=== PATIENT | female | born 1985 | race African-American/Black ===

== ENCOUNTER 2018-12-30 15:09 | Inpatient (IN) | payer BC ==
[~2018-12-30] VITALS: Ht 172.7 cm; Wt 122.5 kg
--- NOTE | 2018-12-30 15:25 | NUR ---
ED Nurse Note: Patient walked into Ed from home c/o abdominal pain. Patient reports nausea, vomiting, diarrhea.
[2018-12-30] MEDS ORDERED: Morphine Sulfate 4mg/ml Inj (IV USE ONLY) IVP ONE (15:30)
[2018-12-30] MEDS ORDERED: D5NS 1,000 ML IV ONE (15:30)
[2018-12-30] MEDS: Metoclopramide 10mg/2ml Inj IVP ONE ×2 (15:50→18:22)
[2018-12-30] MEDS ORDERED: Isovue-300 100ml vial INJ PRN (16:00)
[2018-12-30 16:13] LABS: APPEARANCE,URINE CLEAR; BILIRUBIN, URINE NEGATIVE (NEGATIVE); COLOR,URINE PALE YELLOW; GLUCOSE, URINE (UA) NEGATIVE (NEGATIVE); HEMATOCRIT 43.2 % (37.0-47.0); HEMOGLOBIN 13.9 G/DL (12.0-16.0); KETONES,URINE NEGATIVE (NEGATIVE); LEUKOCYTE ESTERASE ,URINE NEGATIVE (NEGATIVE); MEAN CORPUSCULAR VOLUME 86 FL (80-99); NITRITE,URINE NEGATIVE (NEGATIVE); PH,URINE 6 (4.5-8.0); PLATELET COUNT 331 K/UL (150-450); PROTEIN,URINE 2+ (NEGATIVE); RED BLOOD COUNT 5.03 M/UL (4.20-5.40); RED CELL DISTRIBUTION WIDTH 12.7 % (11.6-14.8); UROBILINOGEN,URINE NORMAL MG/DL (0.0-1.0); WHITE BLOOD COUNT 15.2 K/UL (4.8-10.8)
[2018-12-30 16:14] VITALS: BP 151/94
[2018-12-30 16:16] LABS: BASOPHILS % (AUTO) 0.2 % (0.0-2.0); EOSINOPHILS % (AUTO) 1.2 % (0.0-3.0); LYMPHOCYTES % (AUTO) 6.8 % (20.0-45.0); MONOCYTES % (AUTO) 2.9 % (1.0-10.0); NEUTROPHILS % (AUTO) 88.9 % (45.0-75.0)
[2018-12-30 16:25] LABS: ANION GAP 10 mmol/L (5-15); BLOOD UREA NITROGEN 5 mg/dL (7-18); CALCIUM 9.2 MG/DL (8.5-10.1); CARBON DIOXIDE 26 MMOL/L (21-32); CHLORIDE 103 MMOL/L (98-107); CREATININE 1.2 MG/DL (0.55-1.30); POTASSIUM 3.5 MMOL/L (3.5-5.1); SODIUM 139 MMOL/L (136-145)
[2018-12-30 16:29] LABS: ALANINE AMINOTRANSFERASE 25 U/L (12-78); ALBUMIN 3.4 G/DL (3.4-5.0); ALBUMIN/GLOBULIN RATIO 0.8 (1.0-2.7); ALKALINE PHOSPHATASE 79 U/L (46-116); ASPARTATE AMINO TRANSFERASE 17 U/L (15-37); BILIRUBIN,TOTAL 0.6 MG/DL (0.2-1.0)
--- NOTE | 2018-12-30 16:47 | NUR ---
ED Nurse Note: patient started drinking the contrast, per Michi velazco, patient will go down for CT at 1815
[2018-12-30] MEDS ORDERED: JUNEL FE 1 MG-1 EACH PO (17:22)
[2018-12-30] MEDS ORDERED: ADALAT10 MG ORAL (18:03)
[2018-12-30] MEDS ORDERED: QUETIAPINE FUM400 MG ORAL (18:03)
[2018-12-30] MEDS ORDERED: LITHIUM CARBON300 MG ORAL (18:03)
[2018-12-30] MEDS ORDERED: LOSARTAN POTASS25 MG ORAL (18:03)
--- NOTE | 2018-12-30 18:05 | NUR ---
ED Nurse Note: patient went down for CT
--- NOTE | 2018-12-30 18:19 | NUR ---
ED Nurse Note: patient came back from CT
[2018-12-30] MEDS ORDERED: Metoclopramide 10mg/2ml Inj ONE (18:22)
--- NOTE | 2018-12-30 18:30 | NUR ---
ED Nurse Note: Dr. Mosqueda gave verbal order at 1530 to hold onto the Reglan. RN returned reglan to [facility]. Reglan was not given to the patient at 1530. Reglan was given at 1822, patient vomited once.
--- NOTE | 2018-12-30 18:57 | NUR ---
ED Nurse Note: patient is being transferred to [facility], report given to Swati RN patient went up to the floor with Sriram Murphy
--- NOTE | 2018-12-30 19:01 | Consultation ---
History of Present Illness General Date patient seen: Dec 30, 2018 Reason for Hospitalization: Abdominal Pain Present Illness HPI 33 year old female with history of HTN and fibroids s/p ablation presented to ED with complaints of worsening abdominal pain, nausea, emesis, dysphagia. States that she has had abdominal generalized discomfort for 2 weeks now. over past few days worsening and described as cramping discomfort without radiation. Associated nausea and began to have persistent multiple emesis last night. Came to ED for evaluation today. In ED noted to have abdominal distention and leukocytosis. describes difficulty swallowing. CT scans ordered. Surgery called to evaluate. patient seen, chart reviewed, patient examined. Patient OB Dr. Darshan Johnson. Allergies: Coded Allergies: No Known Allergies (Unverified , 12/30/18) Medication History Scheduled Elliott Carbonate* (Elliott*), 600 MG ORAL QAM AND 900MG QHS, (Reported) Losartan Potassium* (Losartan Potassium*), Unknown Dose ORAL DAILY, (Reported) Nifedipine (Nifedipine*), Unknown Dose ORAL DAILY, (Reported) Noreth A-Et Estra/Fe Fumarate (Junel Fe 1 Mg-20 Mcg Tablet), 1 EACH PO DAILY, ( Reported) Quetiapine Fumarate* (Quetiapine Fumarate*), 400 MG ORAL HS, (Reported) Patient History History Provided By: Patient, Medical Record, PMD Healthcare decision maker Resuscitation status Advanced Directive on File Past Medical/Surgical History Past Medical/Surgical History: (1) Abdominal pain (2) Nausea & vomiting (3) Leukocytosis Review of Systems Review of Symptoms General ROS: no weight loss or fever Psychological ROS: no depression or mood changes, no memory loss Ophthalmic ROS: no visual changes or eye irritation ENT ROS: no nasal congestion, hearing loss, dizziness Allergy and Immunology ROS: no allergic symptoms or urticaria Hematological and Lymphatic ROS: no swollen glands, unusual bleeding or bruising Endocrine ROS: no polyuria, polydipsia, weight changes, temperature intolerance Respiratory ROS: no cough, shortness of breath, or wheezing Cardiovascular ROS: no chest pain or dyspnea on exertion Gastrointestinal ROS: denies abdominal pain, bright red blood in stool. Musculoskeletal ROS: no myalgias or arthralgias Neurological ROS: no TIA or stroke symptoms Dermatological ROS: no new or changing skin lesions, rashes or pruritis Physical Exam Physical Exam General appearance: alert, cooperative, no distress, appears stated age Head: Normocephalic, without obvious abnormality, atraumatic Eyes: conjunctivae/corneas clear. PERRL, EOM's intact. Fundi benign Throat: Lips, mucosa, and tongue normal. Teeth and gums normal Neck: supple, symmetrical, trachea midline, no adenopathy, thyroid: not enlarged, symmetric, no tenderness/mass/nodules, no carotid bruit and no JVD Lungs: clear to auscultation bilaterally Heart: regular rate and rhythm, S1, S2 normal, no murmur, click, rub or gallop Abdomen: soft, mild generalized tender. Bowel sounds normal. large uterus Extremities: extremities normal, atraumatic, no cyanosis or edema Pulses: 2+ and symmetric Skin: Skin color, texture, turgor normal. No rashes or lesions Neurologic: Grossly normal Last 24 Hour Vital Signs Date Time Temp Pulse Resp B/P (MAP) Pulse Ox O2 Delivery O2 Flow Rate FiO2 12/30/18 16:20 98.2 12/30/18 16:15 103 19 Room Air 12/30/18 16:14 98.2 103 19 151/94 98 Room Air 12/30/18 15:17 98.2 116 20 162/118 97 Room Air Laboratory Tests Test 12/30/18 15:45 White Blood Count 15.2 K/UL (4.8-10.8) H Red Blood Count 5.03 M/UL (4.20-5.40) Hemoglobin 13.9 G/DL (12.0-16.0) Hematocrit 43.2 % (37.0-47.0) Mean Corpuscular Volume 86 FL (80-99) Mean Corpuscular Hemoglobin 27.7 PG (27.0-31.0) Mean Corpuscular Hemoglobin Concent 32.2 G/DL (32.0-36.0) Red Cell Distribution Width 12.7 % (11.6-14.8) Platelet Count 331 K/UL (150-450) Mean Platelet Volume 6.2 FL (6.5-10.1) L Neutrophils (%) (Auto) 88.9 % (45.0-75.0) H Lymphocytes (%) (Auto) 6.8 % (20.0-45.0) L Monocytes (%) (Auto) 2.9 % (1.0-10.0) Eosinophils (%) (Auto) 1.2 % (0.0-3.0) Basophils (%) (Auto) 0.2 % (0.0-2.0) Urine Color Pale yellow Urine Appearance Clear Urine pH 6 (4.5-8.0) Urine Specific [place] 1.010 (1.005-1.035) Urine Protein 2+ (NEGATIVE) H Urine Glucose (UA) Negative (NEGATIVE) Urine Ketones Negative (NEGATIVE) Urine Blood Negative (NEGATIVE) Urine Nitrite Negative (NEGATIVE) Urine Bilirubin Negative (NEGATIVE) Urine Urobilinogen Normal MG/DL (0.0-1.0) Urine Leukocyte Esterase Negative (NEGATIVE) Urine RBC 0-2 /HPF (0 - 2) Urine WBC 0-2 /HPF (0 - 2) Urine Squamous Epithelial Cells Moderate /LPF (NONE/OCC) H Urine Bacteria Few /HPF (NONE) Urine HCG, Qualitative Negative (NEGATIVE) Sodium Level 139 MMOL/L (136-145) Potassium Level 3.5 MMOL/L (3.5-5.1) Chloride Level 103 MMOL/L (98-107) Carbon Dioxide Level 26 MMOL/L (21-32) Anion Gap 10 mmol/L (5-15) Blood Urea Nitrogen 5 mg/dL (7-18) L Creatinine 1.2 MG/DL (0.55-1.30) Estimat Glomerular Filtration Rate 52.1 mL/min (>60) Glucose Level 124 MG/DL (74-106) H Calcium Level 9.2 MG/DL (8.5-10.1) Total Bilirubin 0.6 MG/DL (0.2-1.0) Aspartate Amino Transf (AST/SGOT) 17 U/L (15-37) Alanine Aminotransferase (ALT/SGPT) 25 U/L (12-78) Alkaline Phosphatase 79 U/L (46-116) Total Protein 7.8 G/DL (6.4-8.2) Albumin 3.4 G/DL (3.4-5.0) Globulin 4.4 g/dL Albumin/Globulin Ratio 0.8 (1.0-2.7) L Lipase 62 U/L (73-393) L Height (Feet): 5 Height (Inches): 8.00 Weight (Pounds): 270 Medications Current Medications Medications (Trade) Dose Ordered Sig/Manjula Route PRN Reason Start Time Stop Time Status Last Admin Dose Admin Barium Sulfate (Readi-Cat 2) 450 ml NOW PRN ORAL Radiology Procedure 12/30/18 16:00 01/01/19 15:53 Iopamidol (Isovue-300 100ml) 100 ml NOW PRN INJ Radiology Procedure 12/30/18 16:00 Assessment/Plan Problem List: (1) Abdominal pain Assessment & Plan: Generalized abdominal pain. n/v. leukocytosis etiology unclear pending CT scan reads ?enteritis ?bowel obstruction (hx of prior lap fibroid ablation) Admit for monitoring. intractable abd pain, n/v NPO IV fluids IV Abx GI for EGD eval pending final CT reads No acute surgical intervention planned will follow with serial abdominal exams ICD Codes: R10.9 - Unspecified abdominal pain SNOMED: 82420568 Qualifiers: Qualified Codes: R10.84 - Generalized abdominal pain (2) Leukocytosis ICD Codes: D72.829 - Elevated white blood cell count, unspecified SNOMED: 869635929, [id number] (3) Nausea & vomiting ICD Codes: R11.2 - Nausea with vomiting, unspecified SNOMED: [id number] Gideon Petit Dec 30, 2018 19:01
[2018-12-30] MEDS ORDERED: LITHIUM CARBON450 MG PO (19:15)
[2018-12-30] MEDS ORDERED: TRAMADOL HCL50 MG ORAL (19:15)
[2018-12-30] MEDS ORDERED: LITHIUM CARBON300 M3 PO (19:15)
[2018-12-30] MEDS ORDERED: SPIRONOLACTONE25 MG ORAL (19:15)
--- NOTE | 2018-12-30 19:15 | Emergency Room Report ---
History of Present Illness General Chief Complaint: Abdominal Pain Source: Patient, Medical Record, PMD Present Illness HPI This patient states that for the past 2 weeks she has had intermittent episodes of severe abdominal pain and recurrent vomiting. She states that she was seen at another hospital and underwent CT of the abdomen and pelvis and ultrasound and she was only found to have her known fibroids. She has a history of severe fibroids and endometriosis. She states she has undergone fibroid embolization twice. The most recent being about 9 months ago. She is scheduled for another embolization coming up this spring. She states that for the past week she has had dysphasia symptoms. She states she feels like she cannot swallow food. She states that she immediately vomits. She denies fever or chills. She denies dysuria or hematuria. She is also had left upper quadrant abdominal pain. Allergies: Coded Allergies: No Known Allergies (Unverified , 12/30/18) Patient History Past Medical History: see triage record, HTN, other - Fibroids Social History: Denies: smoking, alcohol use, drug use Last Menstrual Period: 12/2018 Now: No Reviewed Nursing Documentation: PMH: Agreed; PSxH: Agreed Nursing Documentation-PMH Past Medical History: No History, Except For Hx Hypertension: Yes Review of Systems All Other Systems: negative except mentioned in HPI Physical Exam Vital Signs Date Time Temp Pulse Resp B/P (MAP) Pulse Ox O2 Delivery O2 Flow Rate FiO2 12/30/18 15:17 98.2 116 20 162/118 97 Room Air Sp02 EP Interpretation: reviewed, normal General Appearance: no apparent distress, alert, GCS 15, non-toxic Head: normocephalic, atraumatic Eyes: bilateral eye normal inspection, bilateral eye PERRL ENT: hearing grossly normal, normal pharynx, no angioedema, normal voice Neck: full range of motion, supple/symm/no masses Respiratory: chest non-tender, lungs clear, normal breath sounds, no respiratory distress, no retraction, no accessory muscle use, speaking full sentences Cardiovascular #1: regular rate, rhythm, no edema Gastrointestinal: normal bowel sounds, soft, non-distended, no guarding, no rebound, tenderness - TTP in the LUQ Rectal: deferred Musculoskeletal: back normal, gait/station normal, normal range of motion, non- tender Neurologic: alert, oriented x3, responsive, motor strength/tone normal, sensory intact, speech normal Psychiatric: judgement/insight normal, memory normal, mood/affect normal, no suicidal/homicidal ideation Skin: normal color, no rash, warm/dry, well hydrated Medical Decision Making Diagnostic Impression: Primary Impression: Abdominal pain Qualified Codes: R10.84 - Generalized abdominal pain Additional Impression: Dysphagia ER Course This patient is having intractable vomiting and symptoms as dysphagia. Possibly this patient has an esophagitis or gastritis or peptic ulcer disease is a possibility. The patient underwent CT of the neck and there is no acute findings. The patient also underwent CT abdomen and pelvis also showed no acute findings. The patient has known fibroids. Patient will be admitted for further evaluation by gastroenterology for EGD and for intractable vomiting. Laboratory Tests Test 12/30/18 15:45 White Blood Count 15.2 K/UL (4.8-10.8) H Red Blood Count 5.03 M/UL (4.20-5.40) Hemoglobin 13.9 G/DL (12.0-16.0) Hematocrit 43.2 % (37.0-47.0) Mean Corpuscular Volume 86 FL (80-99) Mean Corpuscular Hemoglobin 27.7 PG (27.0-31.0) Mean Corpuscular Hemoglobin Concent 32.2 G/DL (32.0-36.0) Red Cell Distribution Width 12.7 % (11.6-14.8) Platelet Count 331 K/UL (150-450) Mean Platelet Volume 6.2 FL (6.5-10.1) L Neutrophils (%) (Auto) 88.9 % (45.0-75.0) H Lymphocytes (%) (Auto) 6.8 % (20.0-45.0) L Monocytes (%) (Auto) 2.9 % (1.0-10.0) Eosinophils (%) (Auto) 1.2 % (0.0-3.0) Basophils (%) (Auto) 0.2 % (0.0-2.0) Urine Color Pale yellow Urine Appearance Clear Urine pH 6 (4.5-8.0) Urine Specific [place] 1.010 (1.005-1.035) Urine Protein 2+ (NEGATIVE) H Urine Glucose (UA) Negative (NEGATIVE) Urine Ketones Negative (NEGATIVE) Urine Blood Negative (NEGATIVE) Urine Nitrite Negative (NEGATIVE) Urine Bilirubin Negative (NEGATIVE) Urine Urobilinogen Normal MG/DL (0.0-1.0) Urine Leukocyte Esterase Negative (NEGATIVE) Urine RBC 0-2 /HPF (0 - 2) Urine WBC 0-2 /HPF (0 - 2) Urine Squamous Epithelial Cells Moderate /LPF (NONE/OCC) H Urine Bacteria Few /HPF (NONE) Urine HCG, Qualitative Negative (NEGATIVE) Sodium Level 139 MMOL/L (136-145) Potassium Level 3.5 MMOL/L (3.5-5.1) Chloride Level 103 MMOL/L (98-107) Carbon Dioxide Level 26 MMOL/L (21-32) Anion Gap 10 mmol/L (5-15) Blood Urea Nitrogen 5 mg/dL (7-18) L Creatinine 1.2 MG/DL (0.55-1.30) Estimate Glomerular Filtration Rate 52.1 mL/min (>60) Glucose Level 124 MG/DL (74-106) H Calcium Level 9.2 MG/DL (8.5-10.1) Total Bilirubin 0.6 MG/DL (0.2-1.0) Aspartate Amino Transferase (AST) 17 U/L (15-37) Alanine Aminotransferase (ALT) 25 U/L (12-78) Alkaline Phosphatase 79 U/L (46-116) Total Protein 7.8 G/DL (6.4-8.2) Albumin 3.4 G/DL (3.4-5.0) Globulin 4.4 g/dL Albumin/Globulin Ratio 0.8 (1.0-2.7) L Lipase 62 U/L (73-393) L CT/MRI/US Diagnostic Results CT/MRI/US Diagnostic Results : Imaging Test Ordered: CT neck, CT abd/pelvix Impression CT neck: No acute findings. CT abdomen and pelvis: Hepatomegaly, prominence of the colonic colon. See official report. Last Vital Signs Date Time Temp Pulse Resp B/P (MAP) Pulse Ox O2 Delivery O2 Flow Rate FiO2 12/30/18 16:20 98.2 12/30/18 16:15 103 19 Room Air 12/30/18 16:14 151/94 98 Status: improved Disposition: ADMITTED INPATIENT Condition: Stable Referrals: NON PHYSICIAN (PCP) Sharon Mackey DO Dec 30, 2018 19:15
[2018-12-30] MEDS ORDERED: NIFEDIPINE20 MG ORAL (19:17)
[2018-12-30] MEDS ORDERED: LOSARTAN POTASS50 MG ORAL (19:17)
[2018-12-30 20:00] VITALS: BP 181/121
[2018-12-30] MEDS: Heparin 5000 units/ml inj SUBQ SCH (20:39)
[2018-12-30] MEDS: Docusate 100mg cap ORAL SCH (20:40)
--- NOTE | 2018-12-30 21:11 | NUR ---
NEW ADMISSION: Recvd pt. Pt arrived via hospital bed at 1900. Admitting dx: dysphagia/ intractable pain. Admitting Dr. Naylor. Pt is on room air with no sign of sob or resp distress. PT is AOx4. Full physical assessment completed. Pt has expiratory wheezing with weak cough. Pt reports green diarrhea and nausea, pain 8/10 on left lower abdominal quadrant. Left AC 20g running 1/2NS @ 75/hr. Med Rec completed. Skin is intact. Belongings reviewed. Pt was oriented to room. Bed in lowest position, call light within reach, will continue with plan of care. Partial orders have been entered, will contact Dr Naylor for pain med.
--- NOTE | 2018-12-30 21:58 | NUR ---
NURSE NOTES: left message for dr samuels for bp meds, pt bp is elevated, pt is also in 8/10 pain
[2018-12-30] MEDS: Hydromorphone 0.5mg/0.5ml inj IVP PRN (22:43)
[2018-12-31] VITALS (11 sets, daily range): BP systolic 142–168; BP diastolic 95–119
[2018-12-31] MEDS: Hydromorphone 0.5mg/0.5ml inj IVP PRN ×3 (04:35→21:32)
[2018-12-31 06:28] LABS: BASOPHILS % (AUTO) 0.5 % (0.0-2.0); EOSINOPHILS % (AUTO) 2.5 % (0.0-3.0); HEMATOCRIT 37.9 % (37.0-47.0); LYMPHOCYTES % (AUTO) 14.9 % (20.0-45.0); MEAN CORPUSCULAR VOLUME 88 FL (80-99); MONOCYTES % (AUTO) 6.6 % (1.0-10.0); NEUTROPHILS % (AUTO) 75.5 % (45.0-75.0); PLATELET COUNT 274 K/UL (150-450); RED CELL DISTRIBUTION WIDTH 12.9 % (11.6-14.8); WHITE BLOOD COUNT 8.3 K/UL (4.8-10.8)
[2018-12-31 07:08] LABS: ANION GAP 9 mmol/L (5-15); BLOOD UREA NITROGEN 3 mg/dL (7-18); CALCIUM 8.5 MG/DL (8.5-10.1); CARBON DIOXIDE 26 MMOL/L (21-32); CHLORIDE 108 MMOL/L (98-107); POTASSIUM 3.4 MMOL/L (3.5-5.1); SODIUM 143 MMOL/L (136-145)
--- NOTE | 2018-12-31 07:18 | NUR ---
HAND-OFF: Report given to Reagan PINEDA.
--- NOTE | 2018-12-31 07:58 | NUR ---
CASE MANAGEMENT:REVIEW 33 YR OLD FEMALE FROM HOME CC; ABDOMINAL PAIN WITH N/V/D SI:ABDOMINAL PAIN. NAUSEA/VOMITING. LEUKOCYTOSIS 98.3 116 20 162/118 97% ON RA WBC+15.2 IS: IV REGLAN IV MORPHINE IVF X1L CT ABD/PELVIS AND NECK PELVIC US : TO MED/SURG 3 EAST PLAN: SURGICAL EVAL INTERQUAL CRITERIA MET
--- NOTE | 2018-12-31 08:18 | History and Physical ---
History of Present Illness General Date patient seen: Dec 31, 2018 Time patient seen: 07:00 Reason for Hospitalization: Abdominal Pain Present Illness HPI 33 year old woman with HTN and fibroids s/p ablation presented to ED with complaints of worsening LUQ abdominal pain, nausea, emesis, dysphagia. Abdominal pain is severe in intensity, nonradiating, crampy. Yesterday she developed nausea and vomiting, unable to keep down anything by mouth. Pain improved with IV Dilaudid given overnight. No further vomiting but has not had anything by mouth. Denies fever, chills, diarrhea, sick contacts. PMHx: HTN Social Hx: No recent alcohol, no tobacco or drugs Allergies: Coded Allergies: No Known Allergies (Unverified , 12/30/18) Medication History Scheduled Anthoston Carbonate (Anthoston Carbonate), 600 MG PO AM, (Reported) Anthoston Carbonate (Anthoston Carbonate), 900 MG PO HS, (Reported) Losartan Potassium* (Losartan Potassium*), 100 MG ORAL DAILY, (Reported) Nifedipine* (Nifedipine*), 20 MG ORAL EVERY 12 HOURS, (Reported) Noreth A-Et Estra/Fe Fumarate (Junel Fe 1 Mg-20 Mcg Tablet), 1 EACH PO DAILY, ( Reported) Quetiapine Fumarate* (Quetiapine Fumarate*), 400 MG ORAL HS, (Reported) Spironolactone* (Aldactone*), 25 MG ORAL DAILY, (Reported) Tramadol Hcl* (Ultram*), 50 MG ORAL PRN, (Reported) Discontinued Medications Losartan Potassium* (Losartan Potassium*), Unknown Dose ORAL DAILY, (Reported) Discontinued Reason: Prescription changed Nifedipine (Nifedipine*), Unknown Dose ORAL DAILY, (Reported) Discontinued Reason: Prescription changed Patient History Healthcare decision maker Resuscitation status Full Code Advanced Directive on File No Review of Systems Constitutional: Denies: chills, fever Eye: Denies: eye pain, blurred vision ENT: Denies: ear pain, ear discharge Respiratory: Denies: cough, orthopnea Cardiovascular: Denies: chest pain, edema Gastrointestinal: Reports: abdominal pain, nausea, vomiting; Denies: constipation, diarrhea Genitourinary: Denies: discharge Musculoskeletal: Denies: back pain Skin: Denies: rash Neurological: Denies: headache Physical Exam General Appearance: alert, obese HEENT: normocephalic, atraumatic Respiratory/Chest: lungs clear, normal breath sounds, no respiratory distress, no accessory muscle use Cardiovascular/Chest: normal rate, regular rhythm, regularly irregular Abdomen: normal bowel sounds, non tender, soft, no organomegaly, no mass Extremities: normal range of motion Skin Exam: normal pigmentation, warm/dry Neurologic: card brusher II-XII grossly normal, no motor/sensory deficits, alert, oriented x 3 Last 24 Hour Vital Signs Date Time Temp Pulse Resp B/P (MAP) Pulse Ox O2 Delivery O2 Flow Rate FiO2 12/31/18 07:59 98.4 92 19 153/118 (130) 97 12/31/18 05:05 99.2 12/31/18 04:00 99.2 96 18 157/100 (119) 95 12/31/18 00:00 97.4 109 18 155/107 (123) 95 12/30/18 21:05 Room Air 12/30/18 20:42 Room Air 12/30/18 20:00 99.2 105 20 181/121 (141) 95 12/30/18 19:26 98.2 103 19 151/94 98 Room Air 12/30/18 16:20 98.2 12/30/18 16:15 103 19 Room Air 12/30/18 16:14 98.2 103 19 151/94 98 Room Air 12/30/18 15:17 98.2 116 20 162/118 97 Room Air Intake and Output 12/30/18 12/31/18 19:00 07:00 Intake Total 1052 ml Balance 1052 ml Intake IV Total 1052 ml # Voids 4 # Bowel Movements 2 Laboratory Tests Test 12/30/18 15:45 12/31/18 05:49 White Blood Count 15.2 K/UL (4.8-10.8) H 8.3 K/UL (4.8-10.8) Red Blood Count 5.03 M/UL (4.20-5.40) 4.30 M/UL (4.20-5.40) Hemoglobin 13.9 G/DL (12.0-16.0) 12.0 G/DL (12.0-16.0) Hematocrit 43.2 % (37.0-47.0) 37.9 % (37.0-47.0) Mean Corpuscular Volume 86 FL (80-99) 88 FL (80-99) Mean Corpuscular Hemoglobin 27.7 PG (27.0-31.0) 27.9 PG (27.0-31.0) Mean Corpuscular Hemoglobin Concent 32.2 G/DL (32.0-36.0) 31.7 G/DL (32.0-36.0) L Red Cell Distribution Width 12.7 % (11.6-14.8) 12.9 % (11.6-14.8) Platelet Count 331 K/UL (150-450) 274 K/UL (150-450) Mean Platelet Volume 6.2 FL (6.5-10.1) L 6.5 FL (6.5-10.1) Neutrophils (%) (Auto) 88.9 % (45.0-75.0) H 75.5 % (45.0-75.0) H Lymphocytes (%) (Auto) 6.8 % (20.0-45.0) L 14.9 % (20.0-45.0) L Monocytes (%) (Auto) 2.9 % (1.0-10.0) 6.6 % (1.0-10.0) Eosinophils (%) (Auto) 1.2 % (0.0-3.0) 2.5 % (0.0-3.0) Basophils (%) (Auto) 0.2 % (0.0-2.0) 0.5 % (0.0-2.0) Urine Color Pale yellow Urine Appearance Clear Urine pH 6 (4.5-8.0) Urine Specific [place] 1.010 (1.005-1.035) Urine Protein 2+ (NEGATIVE) H Urine Glucose (UA) Negative (NEGATIVE) Urine Ketones Negative (NEGATIVE) Urine Blood Negative (NEGATIVE) Urine Nitrite Negative (NEGATIVE) Urine Bilirubin Negative (NEGATIVE) Urine Urobilinogen Normal MG/DL (0.0-1.0) Urine Leukocyte Esterase Negative (NEGATIVE) Urine RBC 0-2 /HPF (0 - 2) Urine WBC 0-2 /HPF (0 - 2) Urine Squamous Epithelial Cells Moderate /LPF (NONE/OCC) H Urine Bacteria Few /HPF (NONE) Urine HCG, Qualitative Negative (NEGATIVE) Sodium Level 139 MMOL/L (136-145) 143 MMOL/L (136-145) Potassium Level 3.5 MMOL/L (3.5-5.1) 3.4 MMOL/L (3.5-5.1) L Chloride Level 103 MMOL/L (98-107) 108 MMOL/L (98-107) H Carbon Dioxide Level 26 MMOL/L (21-32) 26 MMOL/L (21-32) Anion Gap 10 mmol/L (5-15) 9 mmol/L (5-15) Blood Urea Nitrogen 5 mg/dL (7-18) L 3 mg/dL (7-18) L Creatinine 1.2 MG/DL (0.55-1.30) 1.0 MG/DL (0.55-1.30) Estimat Glomerular Filtration Rate 52.1 mL/min (>60) > 60 mL/min (>60) Glucose Level 124 MG/DL (74-106) H 124 MG/DL (74-106) H Calcium Level 9.2 MG/DL (8.5-10.1) 8.5 MG/DL (8.5-10.1) Total Bilirubin 0.6 MG/DL (0.2-1.0) Aspartate Amino Transf (AST/SGOT) 17 U/L (15-37) Alanine Aminotransferase (ALT/SGPT) 25 U/L (12-78) Alkaline Phosphatase 79 U/L (46-116) Total Protein 7.8 G/DL (6.4-8.2) Albumin 3.4 G/DL (3.4-5.0) Globulin 4.4 g/dL Albumin/Globulin Ratio 0.8 (1.0-2.7) L Lipase 62 U/L (73-393) L Height (Feet): 5 Height (Inches): 8.00 Weight (Pounds): 270 Medications Current Medications Medications (Trade) Dose Ordered Sig/Manjula Route PRN Reason Start Time Stop Time Status Last Admin Dose Admin Acetaminophen (Tylenol) 650 mg Q4H PRN ORAL Mild Pain (Pain Scale 1-3) 12/30/18 19:00 01/29/19 18:59 Barium Sulfate (Readi-Cat 2) 450 ml NOW PRN ORAL Radiology Procedure 12/30/18 16:00 01/01/19 15:53 Dextrose (Dextrose 50%) 25 ml Q30M PRN IV Hypoglycemia 12/30/18 19:00 01/29/19 18:59 Dextrose (Dextrose 50%) 50 ml Q30M PRN IV Hypoglycemia 12/30/18 19:00 01/29/19 18:59 Diphenhydramine HCl (Benadryl) 25 mg Q6H PRN ORAL Itching/Pruritis 12/30/18 19:00 01/29/19 18:59 12/31/18 00:22 Docusate Sodium (Colace) 100 mg EVERY 12 HOURS ORAL 12/30/18 21:00 01/29/19 20:59 Heparin Sodium (Porcine) (Heparin 5000 units/ml) 5,000 units EVERY 12 HOURS SUBQ 12/30/18 21:00 01/29/19 20:59 Hydromorphone HCl (Dilaudid) 0.5 mg Q6H PRN IVP Pain Scale (6-10) 12/30/18 19:00 01/06/19 18:59 12/31/18 04:35 Iopamidol (Isovue-300 100ml) 100 ml NOW PRN INJ Radiology Procedure 12/30/18 16:00 Losartan Potassium (Cozaar) 100 mg DAILY ORAL 12/31/18 09:00 01/30/19 08:59 UNV Ondansetron HCl (Zofran) 4 mg Q6H PRN IVP Nausea & Vomiting 12/30/18 19:00 01/29/19 18:59 12/31/18 04:35 Quetiapine Fumarate (SEROquel) 400 mg BEDTIME ORAL 12/31/18 21:00 01/30/19 20:59 UNV Sodium Chloride 1,000 ml @ 75 mls/hr [id number] IV 12/30/18 19:55 01/29/19 19:54 12/30/18 20:40 Spironolactone (Aldactone) 25 mg DAILY ORAL 12/31/18 09:00 01/30/19 08:59 UNV Assessment/Plan Status Narrative #Abdominal pain #Leukocytosis Assessment/Plan #Intractable Nausea and vomiting -admit to medical service -NPO, IVF, Zofran, Dilaudid prn -Await CT results -GI and Surgery consulted -Plan for EGD today -Possible trial of clears today #Hypertensive urgency #Uncontrolled due to pain #Morbid obesity -resume home anti-hypertensive regimen -monitor pressures closely VTE PPx Heparin SC Full Code I spent 70 minutes on this patient's case, and 35 minutes was dedicated to counseling and/or care coordination. Israel Buchanan MD Dec 31, 2018 08:18
[2018-12-31] MEDS ORDERED: NIFEdipine 10mg cap ORAL SCH (08:30)
[2018-12-31] MEDS: Spironolactone 25mg tab ORAL SCH (09:00)
[2018-12-31] MEDS: Docusate 100mg cap ORAL SCH ×2 (09:00→21:00)
[2018-12-31] MEDS: Losartan 50mg tab ORAL SCH (09:00)
[2018-12-31] MEDS: Heparin 5000 units/ml inj SUBQ SCH ×2 (09:00→21:17)
--- NOTE | 2018-12-31 09:36 | NUR ---
NURSE NOTES: PT AXOX4, CALM, RESTING IN BED. STATES HER NAUSEA HAS SUBSIDED AT THIS TIME. PT EDUCATED ON PRN SCHEDULE OF ZOFRAN. PT VERBALIZED UNDERSTANDING. DR CONTEH MADE AWARE OF POTASSIUM LEVEL 3.4 TODAY, WITH NO NEW ORDERS GIVEN. PT STATES SHE HAS DIARRHEA. SCHEDULED COLACE HELD. PT EDUCATED ON NEEDING ZENAIDA SAMPLE TO TEST FOR C DIFF. PT VERBALIZED UNDERSTANDING. IN NO APPARENT DISTRESS AT THIS TIME. BED IN LOWEST POSITION. CALL LIGHT WITHIN REACH. WILL CONTINUE TO MONITOR.
--- NOTE | 2018-12-31 09:52 | Diagnostic Imaging Report ---
Indication: Dysphagia x24 hours, abdominal pain with nausea vomiting and diarrhea Technique: No IV contrast utilized, reason not stated Spiral acquisitions obtained through the neck Multiplanar reconstructions were generated. Total dose length product 611.68 mGycm. CTDIvol(s) 20.66 mGy. Radiation dose was minimized using automated exposure control Comparison: none Findings: Evaluation is limited in the absence of IV contrast. The nasopharynx and oropharynx appear unremarkable. The tonsillar pillars appear symmetric and normal. Unremarkable hypopharynx and larynx. There are abundant but not enlarged cervical nodes bilaterally. No definite prevertebral soft tissue swelling. No evidence of abscess demonstrated. Included sinuses demonstrate extensive opacification of the ethmoid air cells. Mucosal disease is seen in the sphenoid and maxillary sinuses bilaterally. The parapharyngeal spaces are clear, symmetric. The salivary glands are unremarkable. The thyroid is unremarkable. There is reversal of the normal cervical lordosis. The bones are otherwise unremarkable. The left mastoids are nonpneumatized. The left external auditory canal is ectatic. This could indicate prior surgery. The upper mediastinum is unremarkable. The included upper lungs are unremarkable. Impression: No acute abnormality. No findings to explain stated clinical history of dysphagia Sinus disease Nonpneumatized left mastoids. Possible prior left mastoid/external auditory canal surgery. Correlate with surgical history This agrees with the preliminary interpretation provided overnight by [facility]. The CT scanner at [facility] is accredited by the [employer] and the scans are performed using protocols designed to limit radiation exposure to as low as reasonably achievable to attain images of sufficient resolution adequate for diagnostic evaluation.
--- NOTE | 2018-12-31 10:02 | Diagnostic Imaging Report ---
Clinical Indication: Abdominal pain, nausea, vomiting, diarrhea Technique: Patient ingested a limited amount of enteric contrast immediately before the exam. IV administration nonionic contrast. Venous there obtained through the abdomen and pelvis. Multiplanar reconstructions were generated. Total dose length product 1152.84 mGycm. CTDIvol(s) 19.51 mGy. Dose reduction achieved using automated exposure control Comparison: none Findings: Normal appendix. No evidence of diverticulosis or diverticulitis. No small bowel distention. No free or loculated intraperitoneal gas or fluid. The distal esophagus, stomach, duodenum are unremarkable. The colon is mildly fluid-filled The liver is somewhat enlarged, diffusely hypoattenuating, consistent with fatty change. No focal abnormality. Gallbladder contains one or more gallstones. No biliary ductal dilatation. The pancreas is unremarkable. The spleen demonstrates a 3.3 cm low-attenuation lesion anteriorly. There is an accessory splenule. The adrenals, kidneys, ureters and bladder are unremarkable. There is a focal 4.2 cm lobulated fluid collection in the pelvis. The uterus is enlarged, demonstrates multiple low-attenuation masses, some with peripheral calcifications. The included lung bases are clear. The bones are unremarkable. Impression: Enlarged fatty liver Cholelithiasis 3.3 cm low-attenuation splenic lesion. Could indicate a hemangioma, cyst, among other possibilities Mildly fluid-filled colon, likely related to stated clinical history of diarrhea 4.2 cm lobulated fluid collection in the pelvis. This could indicate free pelvic fluid, or could represent an adnexal cystic lesion, although and ovaries not visualized adjacent to this. Enlarged fibroid uterus This agrees with the preliminary interpretation provided overnight by [facility], with minor variation. The CT scanner at [facility] is accredited by the [employer] and the scans are performed using protocols designed to limit radiation exposure to as low as reasonably achievable to attain images of sufficient resolution adequate for diagnostic evaluation.
--- NOTE | 2018-12-31 11:27 | Anethesia Preoperative Eval ---
Anesthesia Pre-op PMH/ROS General Date of Evaluation: Dec 31, 2018 Time of Evaluation: 11:23 Anesthesiologist: Flakito ASA Score: ASA 3 Mallampati Score Class I : Soft palate, uvula, fauces, pillars visible Class II: Soft palate, uvula, fauces visible Class III: Soft palate, base of uvula visible Class IV: Only hard plate visible Mallampati Classification: Class III Surgeon: Keven Diagnosis: Abdominal pain Surgical Procedure: EGD Anesthesia History: none Family History: no anesthesia problems Allergies: Coded Allergies: No Known Allergies (Unverified , 12/30/18) Medications: see eMAR Patient NPO?: Yes Past Medical History Cardiovascular: Reports: HTN; Denies: CAD, MA, valve dz, arrhythmia, other Pulmonary: Reports: THERON; Denies: asthma, COPD, other Gastrointestinal/Genitourinary: Reports: GERD Neurologic/Psychiatric: Reports: depression/anxiety, other - bipolar disorder; Denies: dementia, CVA, TIA Endocrine: Reports: DM - borderline; Denies: hypothyroidism, steroids, other HEENT: Denies: cataract (L), cataract (R), glaucoma, [place] DEE-NI' (L), [place] DEE-NI' (R), other Hematology/Immune: Denies: anemia, DVT, bleeding disorder, other Musculoskeletal/Integumentary: Denies: OA, RA, DJD, DDD, edema, other Other: obesity - morbid obesity PMH Narrative: as above PSxH Narrative: uterine fibroids ablation Anesthesia Pre-op Phys. Exam Physician Exam Last Vital Signs Date Time Temp Pulse Resp B/P (MAP) Pulse Ox O2 Delivery O2 Flow Rate FiO2 12/31/18 09:00 Room Air 12/31/18 09:00 92 153/118 12/31/18 07:59 98.4 19 97 Constitutional: NAD Neurologic: CN 2-12 intact Cardiovascular: RRR Respiratory: other - diminished breath sounds bilaterally Gastrointestinal: other - obesity Airway Exam Mallampati Score: Class III MO: limited Neck: short ROM: limited Teeth: missing Dentures: no upper, no lower Anesthesia Pre-op A/P Labs Hematology Test 12/30/18 15:45 12/31/18 05:49 White Blood Count 15.2 K/UL (4.8-10.8) H 8.3 K/UL (4.8-10.8) Red Blood Count 5.03 M/UL (4.20-5.40) 4.30 M/UL (4.20-5.40) Hemoglobin 13.9 G/DL (12.0-16.0) 12.0 G/DL (12.0-16.0) Hematocrit 43.2 % (37.0-47.0) 37.9 % (37.0-47.0) Mean Corpuscular Volume 86 FL (80-99) 88 FL (80-99) Mean Corpuscular Hemoglobin 27.7 PG (27.0-31.0) 27.9 PG (27.0-31.0) Mean Corpuscular Hemoglobin Concent 32.2 G/DL (32.0-36.0) 31.7 G/DL (32.0-36.0) L Red Cell Distribution Width 12.7 % (11.6-14.8) 12.9 % (11.6-14.8) Platelet Count 331 K/UL (150-450) 274 K/UL (150-450) Mean Platelet Volume 6.2 FL (6.5-10.1) L 6.5 FL (6.5-10.1) Neutrophils (%) (Auto) 88.9 % (45.0-75.0) H 75.5 % (45.0-75.0) H Lymphocytes (%) (Auto) 6.8 % (20.0-45.0) L 14.9 % (20.0-45.0) L Monocytes (%) (Auto) 2.9 % (1.0-10.0) 6.6 % (1.0-10.0) Eosinophils (%) (Auto) 1.2 % (0.0-3.0) 2.5 % (0.0-3.0) Basophils (%) (Auto) 0.2 % (0.0-2.0) 0.5 % (0.0-2.0) Chemistry Test 12/30/18 15:45 12/31/18 05:49 Sodium Level 139 MMOL/L (136-145) 143 MMOL/L (136-145) Potassium Level 3.5 MMOL/L (3.5-5.1) 3.4 MMOL/L (3.5-5.1) L Chloride Level 103 MMOL/L (98-107) 108 MMOL/L (98-107) H Carbon Dioxide Level 26 MMOL/L (21-32) 26 MMOL/L (21-32) Anion Gap 10 mmol/L (5-15) 9 mmol/L (5-15) Blood Urea Nitrogen 5 mg/dL (7-18) L 3 mg/dL (7-18) L Creatinine 1.2 MG/DL (0.55-1.30) 1.0 MG/DL (0.55-1.30) Estimat Glomerular Filtration Rate 52.1 mL/min (>60) > 60 mL/min (>60) Glucose Level 124 MG/DL (74-106) H 124 MG/DL (74-106) H Calcium Level 9.2 MG/DL (8.5-10.1) 8.5 MG/DL (8.5-10.1) Total Bilirubin 0.6 MG/DL (0.2-1.0) Aspartate Amino Transf (AST/SGOT) 17 U/L (15-37) Alanine Aminotransferase (ALT/SGPT) 25 U/L (12-78) Alkaline Phosphatase 79 U/L (46-116) Total Protein 7.8 G/DL (6.4-8.2) Albumin 3.4 G/DL (3.4-5.0) Globulin 4.4 g/dL Albumin/Globulin Ratio 0.8 (1.0-2.7) L Lipase 62 U/L (73-393) L Urine Test Test 12/30/18 15:45 Urine HCG, Qualitative Negative (NEGATIVE) Risk Assessment & Plan Assessment: ASA 3 Plan: MAC Status Change Before Surgery: Fuad Hopkins MD Dec 31, 2018 11:27
--- NOTE | 2018-12-31 11:52 | General Surgery Progress Note ---
General Surgery-Progress Note Subjective Reason for Consult LEFT UPPER QUADRANT PAIN. prior ED visit with pelvic pain, now with nausea and vomiting. Symptoms: improved, voiding well, passing flatus Objective Last 24 Hour Vital Signs Date Time Temp Pulse Resp B/P (MAP) Pulse Ox O2 Delivery O2 Flow Rate FiO2 12/31/18 09:00 Room Air 12/31/18 09:00 92 153/118 12/31/18 09:00 153/118 12/31/18 07:59 98.4 92 19 153/118 (130) 97 12/31/18 05:05 99.2 12/31/18 04:00 99.2 96 18 157/100 (119) 95 12/31/18 00:00 97.4 109 18 155/107 (123) 95 12/30/18 21:05 Room Air 12/30/18 20:42 Room Air 12/30/18 20:00 99.2 105 20 181/121 (141) 95 12/30/18 19:26 98.2 103 19 151/94 98 Room Air 12/30/18 16:20 98.2 12/30/18 16:15 103 19 Room Air 12/30/18 16:14 98.2 103 19 151/94 98 Room Air 12/30/18 15:17 98.2 116 20 162/118 97 Room Air I&O Intake and Output 12/30/18 12/31/18 19:00 07:00 Intake Total 1052 ml Balance 1052 ml Intake IV Total 1052 ml # Voids 4 # Bowel Movements 2 Dressing: dry Wound: clean Drains: none Cardiovascular: RSR Respiratory: clear Abdomen: soft, flat, scaphoid, tenderness, present bowel sounds Extremities: no edema, no tenderness, no cyanosis Laboratory Tests Test 12/30/18 15:45 12/31/18 05:49 White Blood Count 15.2 K/UL (4.8-10.8) H 8.3 K/UL (4.8-10.8) Red Blood Count 5.03 M/UL (4.20-5.40) 4.30 M/UL (4.20-5.40) Hemoglobin 13.9 G/DL (12.0-16.0) 12.0 G/DL (12.0-16.0) Hematocrit 43.2 % (37.0-47.0) 37.9 % (37.0-47.0) Mean Corpuscular Volume 86 FL (80-99) 88 FL (80-99) Mean Corpuscular Hemoglobin 27.7 PG (27.0-31.0) 27.9 PG (27.0-31.0) Mean Corpuscular Hemoglobin Concent 32.2 G/DL (32.0-36.0) 31.7 G/DL (32.0-36.0) L Red Cell Distribution Width 12.7 % (11.6-14.8) 12.9 % (11.6-14.8) Platelet Count 331 K/UL (150-450) 274 K/UL (150-450) Mean Platelet Volume 6.2 FL (6.5-10.1) L 6.5 FL (6.5-10.1) Neutrophils (%) (Auto) 88.9 % (45.0-75.0) H 75.5 % (45.0-75.0) H Lymphocytes (%) (Auto) 6.8 % (20.0-45.0) L 14.9 % (20.0-45.0) L Monocytes (%) (Auto) 2.9 % (1.0-10.0) 6.6 % (1.0-10.0) Eosinophils (%) (Auto) 1.2 % (0.0-3.0) 2.5 % (0.0-3.0) Basophils (%) (Auto) 0.2 % (0.0-2.0) 0.5 % (0.0-2.0) Urine Color Pale yellow Urine Appearance Clear Urine pH 6 (4.5-8.0) Urine Specific [place] 1.010 (1.005-1.035) Urine Protein 2+ (NEGATIVE) H Urine Glucose (UA) Negative (NEGATIVE) Urine Ketones Negative (NEGATIVE) Urine Blood Negative (NEGATIVE) Urine Nitrite Negative (NEGATIVE) Urine Bilirubin Negative (NEGATIVE) Urine Urobilinogen Normal MG/DL (0.0-1.0) Urine Leukocyte Esterase Negative (NEGATIVE) Urine RBC 0-2 /HPF (0 - 2) Urine WBC 0-2 /HPF (0 - 2) Urine Squamous Epithelial Cells Moderate /LPF (NONE/OCC) H Urine Bacteria Few /HPF (NONE) Urine HCG, Qualitative Negative (NEGATIVE) Sodium Level 139 MMOL/L (136-145) 143 MMOL/L (136-145) Potassium Level 3.5 MMOL/L (3.5-5.1) 3.4 MMOL/L (3.5-5.1) L Chloride Level 103 MMOL/L (98-107) 108 MMOL/L (98-107) H Carbon Dioxide Level 26 MMOL/L (21-32) 26 MMOL/L (21-32) Anion Gap 10 mmol/L (5-15) 9 mmol/L (5-15) Blood Urea Nitrogen 5 mg/dL (7-18) L 3 mg/dL (7-18) L Creatinine 1.2 MG/DL (0.55-1.30) 1.0 MG/DL (0.55-1.30) Estimat Glomerular Filtration Rate 52.1 mL/min (>60) > 60 mL/min (>60) Glucose Level 124 MG/DL (74-106) H 124 MG/DL (74-106) H Calcium Level 9.2 MG/DL (8.5-10.1) 8.5 MG/DL (8.5-10.1) Total Bilirubin 0.6 MG/DL (0.2-1.0) Aspartate Amino Transf (AST/SGOT) 17 U/L (15-37) Alanine Aminotransferase (ALT/SGPT) 25 U/L (12-78) Alkaline Phosphatase 79 U/L (46-116) Total Protein 7.8 G/DL (6.4-8.2) Albumin 3.4 G/DL (3.4-5.0) Globulin 4.4 g/dL Albumin/Globulin Ratio 0.8 (1.0-2.7) L Lipase 62 U/L (73-393) L Imaging no acute findings on CT scan. elevated WBC noted. Plan Additional Comments upper GI endoscopy today. pain controlled c iv dilaudid. Darshan Johnson MD Dec 31, 2018 11:52
[2018-12-31] MEDS ORDERED: Propofol 200mg/20ml IV ONE (12:00)
[2018-12-31] MEDS ORDERED: Labetalol 5mg/ml 20ml vial IV ONE (12:00)
[2018-12-31] MEDS ORDERED: Midazolam 2mg/2ml Inj ONE (12:00)
[2018-12-31] MEDS ORDERED: fentaNYL 100 mcg/2 mL IV ONE (12:00)
--- NOTE | 2018-12-31 12:05 | NUR ---
NURSE NOTES: DR CONTEH MADE AWARE OF ELEVATED BP AND PT IS ON NIFEDIPINE 60MG DAILY AT HOME. CURRENTLY ON 10MG. OK TO CHANGE DOSE AND NO PRN BP MEDS ORDERS. PER MD, CONTINUE TO MONITOR. BP. PT WAS TAKEN FOR EGD.
[2018-12-31] MEDS ORDERED: NS 500ML IVPB ONE (12:30)
--- NOTE | 2018-12-31 12:42 | Pre-Procedure Note/Attestation ---
Pre-Procedure Note/Attestation Complete Prior to Procedure Planned Procedure: not applicable Procedure Narrative: egd Indications for Procedure Pre-Operative Diagnosis: dysphagia Attestation I attest that I discussed the nature of the procedure; its benefits; risks and complications; and alternatives (and the risks and benefits of such alternatives ), prior to the procedure, with the patient (or the patient's legal cash application representative). I attest that, if there was a reasonable possibility of needing a blood transfusion, the patient (or the patient's legal cash application representative) was given the [facility] standardized written summary, pursuant to the Dean Strandquist Blood Safety Act ([place] Health and Safety Code # 1645, as amended). I attest that I re-evaluated the patient just prior to the surgery and that there has been no change in the patient's H&P, except as documented below: Min Baca MD Dec 31, 2018 12:42
--- NOTE | 2018-12-31 12:48 | Endoscopy Procedure Note ---
Endoscopy Procedure Note General Indication for Procedure: abd pain, Dysphagia Procedures Performed: EGD Operative Findings/Diagnosis: gastritis Specimen: yes Pt Tolerated Procedure Well: Yes Estimated Blood Loss: none Anesthesia Anesthesiologist: roselia Anesthesia: MAC Inserted Devices Implant(s) used?: No GI Core Measures 50 yrs or older w/o bx or poly: Not Applicable 10yrs. F/U not recommended: Not Applicable Min Baca MD Dec 31, 2018 12:48
--- NOTE | 2018-12-31 13:00 | Immediate Post-Op Evaluation ---
Immediate Post-Op Evalulation Immediate Post-Op Evalulation Procedure: EGD with Bx Date of Evaluation: Dec 31, 2018 Time of Evaluation: 13:00 IV Fluids: 200 Blood Products: none Estimated Blood Loss: none Urinary Output: none Blood Pressure Systolic: 144 Blood Pressure Diastolic: 96 Pulse Rate: 86 Respiratory Rate: 20 O2 Sat by Pulse Oximetry: 99 Temperature (Fahrenheit): 97.6 Pain Score (1-10): 1 Nausea: No Vomiting: No Complications none Patient Status: awake, patent, none Hydration Status: adequate Fuad Fraga MD Dec 31, 2018 13:00
[2018-12-31] MEDS: NIFEdipine 10mg cap ORAL SCH ×2 (13:31→22:03)
--- NOTE | 2018-12-31 15:00 | NUR ---
NURSE NOTES: PT MADE AWARE OF BEING NPO FOR A FEW MORE HOURS DUE TO PENDING US ABDOMEN. PER PT, SHE WANTS TO HAVE US ABD DONE TOMORROW AND AGREES TO BE NPO AT MIDNIGHT.
--- NOTE | 2018-12-31 15:02 | 48 Hour Post Anesthesia Eval ---
Post Anesthesia Evaluation Procedure: EGD with Bx Date of Evaluation: Dec 31, 2018 Time of Evaluation: 15:01 Blood Pressure Systolic: 158 0: 87 Pulse Rate: 86 Respiratory Rate: 20 Temperature (Fahrenheit): 97.6 O2 Sat by Pulse Oximetry: 98 Airway: patent Nausea: No Vomiting: No Pain Intensity: 2 Hydration Status: adequate Cardiopulmonary Status: stable Mental Status/LOC: patient returned to baseline Follow-up Care/Observations: n/a Post-Anesthesia Complications: none Follow-up care needed: N/A Fuad Fraga MD Dec 31, 2018 15:02
--- NOTE | 2018-12-31 16:15 | Procedure Note ---
DATE OF PROCEDURE: 12/31/2018 SURGEON: Min Bartlett M.D. REFERRING PHYSICIAN: Darshan Johnson M.D. PROCEDURE: Upper endoscopy with biopsy. ANESTHESIA: Per Dr. Fraga. INSTRUMENT: Olympus adult flexible upper endoscope. INDICATION: Dysphagia. REASON FOR PROCEDURE: The procedure, risks, benefits, and possible consequences, including hemorrhage, aspiration, perforation and infection, and alternative treatments, were explained to the patient/legal guardian by Dr. Min Baca and the patient/legal guardian understood and accepted these risks. PROCEDURE IN DETAIL: After informed consent was obtained and the patient was adequately sedated, Olympus upper endoscope was advanced from mouth into the second portion of the duodenum and retroflexion was performed in the stomach. The patient had evidence of some diffuse gastritis. Random biopsy from antrum was obtained to rule out H. pylori infection. Otherwise, the rest of the upper endoscopic examination grossly looked within normal limits. There was no evidence of obvious mass, stricture or any other pathology seen. The patient tolerated the procedure very well without complication. SUMMARY OF FINDINGS: 1. Gastritis. 2. Otherwise normal upper endoscopic examination. RECOMMENDATIONS: 1. Follow up biopsy results and treat accordingly. 2. Resume diet. 3. Continue monitoring and evaluating the patient for cause of her symptoms. I want to thank Dr. Johnson for this kind referral. Min Baca M.D. DR: ALBIN JOB#: [id number] CC: Darshan Johnson M.D.; Fax#: [phone]
--- NOTE | 2018-12-31 16:29 | Surgery Progress Note ---
Surgery Progress Note Subjective Additional Comments no acute events. had EGD today. CT noted. pending US Objective Last 24 Hour Vital Signs Date Time Temp Pulse Resp B/P (MAP) Pulse Ox O2 Delivery O2 Flow Rate FiO2 12/31/18 15:02 86 20 98 12/31/18 13:31 87 168/119 12/31/18 13:29 98.5 87 20 168/119 (135) 98 12/31/18 13:05 97.0 86 18 157/102 98 Room Air 12/31/18 13:00 85 17 155/106 100 Nasal Cannula 3 12/31/18 13:00 86 20 99 12/31/18 12:54 97.2 86 20 142/99 100 Nasal Cannula 3 12/31/18 12:00 98.6 95 18 162/110 (127) 98 12/31/18 09:00 Room Air 12/31/18 09:00 92 153/118 12/31/18 09:00 153/118 12/31/18 07:59 98.4 92 19 153/118 (130) 97 12/31/18 05:05 99.2 12/31/18 04:00 99.2 96 18 157/100 (119) 95 12/31/18 00:00 97.4 109 18 155/107 (123) 95 12/30/18 21:05 Room Air 12/30/18 20:42 Room Air 12/30/18 20:00 99.2 105 20 181/121 (141) 95 12/30/18 19:26 98.2 103 19 151/94 98 Room Air I&O Intake and Output 12/30/18 12/31/18 19:00 07:00 Intake Total 1052 ml Balance 1052 ml Intake IV Total 1052 ml # Voids 4 # Bowel Movements 2 Drains: none Cardiovascular: RSR Respiratory: clear Abdomen: soft, non-tender, non-distended Extremities: no tenderness, no cyanosis Laboratory Tests Test 12/31/18 05:49 White Blood Count 8.3 K/UL (4.8-10.8) Red Blood Count 4.30 M/UL (4.20-5.40) Hemoglobin 12.0 G/DL (12.0-16.0) Hematocrit 37.9 % (37.0-47.0) Mean Corpuscular Volume 88 FL (80-99) Mean Corpuscular Hemoglobin 27.9 PG (27.0-31.0) Mean Corpuscular Hemoglobin Concent 31.7 G/DL (32.0-36.0) L Red Cell Distribution Width 12.9 % (11.6-14.8) Platelet Count 274 K/UL (150-450) Mean Platelet Volume 6.5 FL (6.5-10.1) Neutrophils (%) (Auto) 75.5 % (45.0-75.0) H Lymphocytes (%) (Auto) 14.9 % (20.0-45.0) L Monocytes (%) (Auto) 6.6 % (1.0-10.0) Eosinophils (%) (Auto) 2.5 % (0.0-3.0) Basophils (%) (Auto) 0.5 % (0.0-2.0) Sodium Level 143 MMOL/L (136-145) Potassium Level 3.4 MMOL/L (3.5-5.1) L Chloride Level 108 MMOL/L (98-107) H Carbon Dioxide Level 26 MMOL/L (21-32) Anion Gap 9 mmol/L (5-15) Blood Urea Nitrogen 3 mg/dL (7-18) L Creatinine 1.0 MG/DL (0.55-1.30) Estimat Glomerular Filtration Rate > 60 mL/min (>60) Glucose Level 124 MG/DL (74-106) H Calcium Level 8.5 MG/DL (8.5-10.1) Plan Problems: (1) Abdominal pain Assessment & Plan: Generalized abdominal pain. n/v. leukocytosis etiology unclear CT noted. ?enteritis ?bowel obstruction (hx of prior lap fibroid ablation) EGD today okay labs noted okay for diet IV fluids IV Abx pending Ultrasound eval No acute surgical intervention planned will follow with serial abdominal exams (2) Leukocytosis (3) Nausea & vomiting Gideon Petit Dec 31, 2018 16:29
--- NOTE | 2018-12-31 19:53 | NUR ---
NURSE NOTES:Patient received from ANMOL Elizabeth Patient A/A/OX4 . Patient denies any pain at this time . no s/s of distress LACg#20 with 1/2 NS at 75 cc/hr. infusing well. patient ambulate to bathroom and back to bed . call light within reach. bed in low position at all times . will continue to monitor .
--- NOTE | 2018-12-31 19:53 | NUR ---
HAND-OFF: Report given to Oliver CHE LVN.
[2018-12-31] MEDS ORDERED: QUEtiapine 200mg tab ORAL SCH (21:00)
--- NOTE | 2018-12-31 21:52 | NUR ---
NURSE NOTES:Patient have loose bowel movement .stool sample for stool c diff toxin sent down to laboratory .
--- NOTE | 2018-12-31 22:30 | NUR ---
NURSE NOTES:Patient c/o abdominal pain and nausea at 21:52 pm . pain rates 8 out of 10 . Dilaudid 0.5 IVP and Zofran 4 mg IVP and Patient re assess with good relief patient asleep during rounds . call light within reach . bed in low position.
[2019-01-01] VITALS (10 sets, daily range): BP systolic 136–175; BP diastolic 77–122
--- NOTE | 2019-01-01 | NUR ---
NURSE NOTES: patient keep NPO After midnight foR US Abdomen Complete. will continue to monitor patient
[2019-01-01] MEDS: NIFEdipine 10mg cap ORAL SCH (06:00)
[2019-01-01 07:26] LABS: HEMATOCRIT 36.8 % (37.0-47.0); HEMOGLOBIN 11.8 G/DL (12.0-16.0); MEAN CORPUSCULAR VOLUME 87 FL (80-99); PLATELET COUNT 255 K/UL (150-450); RED BLOOD COUNT 4.22 M/UL (4.20-5.40); RED CELL DISTRIBUTION WIDTH 13.2 % (11.6-14.8)
[2019-01-01 07:37] LABS: ALANINE AMINOTRANSFERASE 24 U/L (12-78); ALBUMIN 2.8 G/DL (3.4-5.0); ALBUMIN/GLOBULIN RATIO 0.8 (1.0-2.7); ALKALINE PHOSPHATASE 63 U/L (46-116); ANION GAP 9 mmol/L (5-15); ASPARTATE AMINO TRANSFERASE 22 U/L (15-37); BILIRUBIN,TOTAL 0.3 MG/DL (0.2-1.0); BLOOD UREA NITROGEN 3 mg/dL (7-18); CALCIUM 8.3 MG/DL (8.5-10.1); CARBON DIOXIDE 24 MMOL/L (21-32); CHLORIDE 107 MMOL/L (98-107); CREATININE 0.9 MG/DL (0.55-1.30); SODIUM 140 MMOL/L (136-145)
--- NOTE | 2019-01-01 07:40 | NUR ---
HAND-OFF: Report given to Maday Elizabeth
--- NOTE | 2019-01-01 07:45 | NUR ---
NURSE NOTES: Report received from outgoing, Jessica Varghese LVN, rounds made. Patient sleeping in semi-fowlers position in bed. No distress noted. IV infusing to LAC at 75 ml/hr, site asymptomatic. Call light in reach, bed in lowest position, will continue to monitor.
[2019-01-01] MEDS: Docusate 100mg cap ORAL SCH (09:00)
[2019-01-01] MEDS: Losartan 50mg tab ORAL SCH (09:42)
[2019-01-01] MEDS: Spironolactone 25mg tab ORAL SCH (09:42)
[2019-01-01] MEDS: Heparin 5000 units/ml inj SUBQ SCH (09:45)
[2019-01-01] MEDS ORDERED: D5 1/2NS w/KCl 40meq 1000ml 1,000 ML IV SCH (10:30)
--- NOTE | 2019-01-01 11:14 | Surgery Progress Note ---
Surgery Progress Note Subjective Additional Comments no acute events. stable. comfortable. pain improved. still with some LUQ discomfort. exam benign. labs okay. egd okay. Objective Last 24 Hour Vital Signs Date Time Temp Pulse Resp B/P (MAP) Pulse Ox O2 Delivery O2 Flow Rate FiO2 01/01/19 09:42 170/112 01/01/19 06:00 77 130/75 01/01/19 04:00 98.0 79 20 136/77 (96) 99 01/01/19 00:00 98.2 98 20 138/86 (103) 99 12/31/18 22:03 97 157/101 12/31/18 22:02 97.8 12/31/18 21:58 97.8 97 19 157/101 (119) 99 12/31/18 21:00 Room Air 12/31/18 20:00 98.0 97 19 152/99 (116) 99 12/31/18 16:00 98.2 95 19 152/95 (114) 98 12/31/18 15:02 86 20 98 12/31/18 13:31 87 168/119 12/31/18 13:29 98.5 87 20 168/119 (135) 98 12/31/18 13:05 97.0 86 18 157/102 98 Room Air 12/31/18 13:00 85 17 155/106 100 Nasal Cannula 3 12/31/18 13:00 86 20 99 12/31/18 12:54 97.2 86 20 142/99 100 Nasal Cannula 3 12/31/18 12:00 98.6 95 18 162/110 (127) 98 I&O Intake and Output 12/31/18 01/01/19 19:00 07:00 Intake Total 850 ml 1270 ml Output Total 0 ml Balance 850 ml 1270 ml Intake Oral 520 ml IV Total 850 ml 750 ml Output Estimated Blood Loss 0 ml # Voids 2 5 # Bowel Movements 1 Drains: none Cardiovascular: RSR Respiratory: clear Abdomen: soft, flat, non-tender, non-distended Extremities: no tenderness, no cyanosis Laboratory Tests Test 01/01/19 05:50 White Blood Count 8.0 K/UL (4.8-10.8) Red Blood Count 4.22 M/UL (4.20-5.40) Hemoglobin 11.8 G/DL (12.0-16.0) L Hematocrit 36.8 % (37.0-47.0) L Mean Corpuscular Volume 87 FL (80-99) Mean Corpuscular Hemoglobin 27.9 PG (27.0-31.0) Mean Corpuscular Hemoglobin Concent 32.0 G/DL (32.0-36.0) Red Cell Distribution Width 13.2 % (11.6-14.8) Platelet Count 255 K/UL (150-450) Mean Platelet Volume 6.7 FL (6.5-10.1) Neutrophils (%) (Auto) % (45.0-75.0) Lymphocytes (%) (Auto) % (20.0-45.0) Monocytes (%) (Auto) % (1.0-10.0) Eosinophils (%) (Auto) % (0.0-3.0) Basophils (%) (Auto) % (0.0-2.0) Neutrophils % (Manual) Pending Lymphocytes % (Manual) Pending Platelet Estimate Pending Platelet Morphology Pending Sodium Level 140 MMOL/L (136-145) Potassium Level 3.0 MMOL/L (3.5-5.1) L Chloride Level 107 MMOL/L (98-107) Carbon Dioxide Level 24 MMOL/L (21-32) Anion Gap 9 mmol/L (5-15) Blood Urea Nitrogen 3 mg/dL (7-18) L Creatinine 0.9 MG/DL (0.55-1.30) Estimat Glomerular Filtration Rate > 60 mL/min (>60) Glucose Level 100 MG/DL (74-106) Calcium Level 8.3 MG/DL (8.5-10.1) L Total Bilirubin 0.3 MG/DL (0.2-1.0) Aspartate Amino Transf (AST/SGOT) 22 U/L (15-37) Alanine Aminotransferase (ALT/SGPT) 24 U/L (12-78) Alkaline Phosphatase 63 U/L (46-116) Total Protein 6.4 G/DL (6.4-8.2) Albumin 2.8 G/DL (3.4-5.0) L Globulin 3.6 g/dL Albumin/Globulin Ratio 0.8 (1.0-2.7) L Plan Problems: (1) Abdominal pain Assessment & Plan: Generalized abdominal pain. n/v. leukocytosis etiology unclear CT noted. ?enteritis ?bowel obstruction (hx of prior lap fibroid ablation) EGD today okay labs noted okay for diet IV fluids IV Abx okay to d/c from surgical standpoint f/u with Dr. Cardoso Friday No acute surgical intervention planned will follow with serial abdominal exams (2) Leukocytosis (3) Nausea & vomiting Gideon Petit Jan 01, 2019 11:14
--- NOTE | 2019-01-01 11:18 | GI Progress Note ---
Assessment/Plan Problems: (1) Dysphagia ICD Codes: R13.10 - Dysphagia, unspecified SNOMED: 06080425, 366838211 (2) Abdominal pain ICD Codes: R10.9 - Unspecified abdominal pain SNOMED: 87037053 Qualifiers: Qualified Codes: R10.84 - Generalized abdominal pain (3) Nausea & vomiting ICD Codes: R11.2 - Nausea with vomiting, unspecified SNOMED: 38200874 (4) Leukocytosis ICD Codes: D72.829 - Elevated white blood cell count, unspecified SNOMED: 180122492, 928183250 Status: stable Status Narrative Discussed with Dr. Baca Assessment/Plan SUMMARY OF FINDINGS: 1. Gastritis. 2. Otherwise normal upper endoscopic examination. RECOMMENDATIONS: Advance diet Okay for discharge per GI standpoint Follow up biopsy results and treat accordingly. Zofran as needed PPI The patient was seen and examined at bedside and all new and available data was reviewed in the patients chart. I agree with the above findings, impression and plan. (Patient seen earlier today. Signature stamp does not reflect patient encounter time.). - Min Baca MD Subjective Subjective Patient wishes to be discharged Objective Last 24 Hour Vital Signs Date Time Temp Pulse Resp B/P (MAP) Pulse Ox O2 Delivery O2 Flow Rate FiO2 01/01/19 09:42 170/112 01/01/19 06:00 77 130/75 01/01/19 04:00 98.0 79 20 136/77 (96) 99 01/01/19 00:00 98.2 98 20 138/86 (103) 99 12/31/18 22:03 97 157/101 12/31/18 22:02 97.8 12/31/18 21:58 97.8 97 19 157/101 (119) 99 12/31/18 21:00 Room Air 12/31/18 20:00 98.0 97 19 152/99 (116) 99 12/31/18 16:00 98.2 95 19 152/95 (114) 98 12/31/18 15:02 86 20 98 12/31/18 13:31 87 168/119 12/31/18 13:29 98.5 87 20 168/119 (135) 98 12/31/18 13:05 97.0 86 18 157/102 98 Room Air 12/31/18 13:00 85 17 155/106 100 Nasal Cannula 3 12/31/18 13:00 86 20 99 12/31/18 12:54 97.2 86 20 142/99 100 Nasal Cannula 3 12/31/18 12:00 98.6 95 18 162/110 (127) 98 Intake and Output 12/31/18 01/01/19 19:00 07:00 Intake Total 850 ml 1270 ml Output Total 0 ml Balance 850 ml 1270 ml Intake Oral 520 ml IV Total 850 ml 750 ml Output Estimated Blood Loss 0 ml # Voids 2 5 # Bowel Movements 1 Laboratory Tests Test 01/01/19 05:50 White Blood Count 8.0 K/UL (4.8-10.8) Red Blood Count 4.22 M/UL (4.20-5.40) Hemoglobin 11.8 G/DL (12.0-16.0) L Hematocrit 36.8 % (37.0-47.0) L Mean Corpuscular Volume 87 FL (80-99) Mean Corpuscular Hemoglobin 27.9 PG (27.0-31.0) Mean Corpuscular Hemoglobin Concent 32.0 G/DL (32.0-36.0) Red Cell Distribution Width 13.2 % (11.6-14.8) Platelet Count 255 K/UL (150-450) Mean Platelet Volume 6.7 FL (6.5-10.1) Neutrophils (%) (Auto) % (45.0-75.0) Lymphocytes (%) (Auto) % (20.0-45.0) Monocytes (%) (Auto) % (1.0-10.0) Eosinophils (%) (Auto) % (0.0-3.0) Basophils (%) (Auto) % (0.0-2.0) Neutrophils % (Manual) Pending Lymphocytes % (Manual) Pending Platelet Estimate Pending Platelet Morphology Pending Sodium Level 140 MMOL/L (136-145) Potassium Level 3.0 MMOL/L (3.5-5.1) L Chloride Level 107 MMOL/L (98-107) Carbon Dioxide Level 24 MMOL/L (21-32) Anion Gap 9 mmol/L (5-15) Blood Urea Nitrogen 3 mg/dL (7-18) L Creatinine 0.9 MG/DL (0.55-1.30) Estimat Glomerular Filtration Rate > 60 mL/min (>60) Glucose Level 100 MG/DL (74-106) Calcium Level 8.3 MG/DL (8.5-10.1) L Total Bilirubin 0.3 MG/DL (0.2-1.0) Aspartate Amino Transf (AST/SGOT) 22 U/L (15-37) Alanine Aminotransferase (ALT/SGPT) 24 U/L (12-78) Alkaline Phosphatase 63 U/L (46-116) Total Protein 6.4 G/DL (6.4-8.2) Albumin 2.8 G/DL (3.4-5.0) L Globulin 3.6 g/dL Albumin/Globulin Ratio 0.8 (1.0-2.7) L Height (Feet): 5 Height (Inches): 8.00 Weight (Pounds): 270 General Appearance: WD/WN, no apparent distress, alert, morbidly obese Cardiovascular: normal rate Respiratory/Chest: normal breath sounds, no respiratory distress Abdominal Exam: normal bowel sounds, non tender, soft Extremities: normal range of motion, non-tender Chester Jones NP Jan 01, 2019 11:18
--- NOTE | 2019-01-01 11:45 | NUR ---
NURSE NOTES: Dr. Sanabria notified of elevated blood pressure 170/112 mmHg/recheck of 145/104 mmHg and diarrheal BMs x2. No further orders received.
--- NOTE | 2019-01-01 13:46 | Discharge Summary ---
Discharge Summary Hospital Course Date of Admission Dec 30, 2018 at 17:37 Date of Discharge Admitting Diagnosis Dysphagia, intractable vomiting ASIYA Dwyer is a 33 year old female who was admitted on Dec 30, 2018 at 17:37 for Dysphagia/Intractable Vomiting Hospital Course Patient was admitted to medical service with intractable nausea, vomiting and abdominal pain. Seen by GI and General Surgery - CT of A/P and neck were negative. She underwent EGD without any major pathology noted. US RUQ showed gallstones but no cholecystitis. Symptoms attributed to viral gastroenteritis. She is tolerating oral intake and will be discharged home in stable condition. Outpatient follow up with general surgery #Intractable Nausea and vomiting Negative workup Outpatient follow up #Hypertensive urgency #Uncontrolled due to pain #Morbid obesity -continue anti-hypertensives I spent 37 minutes on this patient's case in preparing the discharge Discharge Discharge Disposition Patient was discharged to Home Discharge Diagnoses: (1) Viral gastroenteritis Israel Buchanan MD Jan 01, 2019 13:46
--- NOTE | 2019-01-01 14:59 | Diagnostic Imaging Report ---
Indication: Abdominal pain Technique: Kimball-scale and duplex images of the upper abdomen were obtained. Doppler interrogation of the pancreatic and hepatic vessels Comparison: No comparison sonograms. Reference made to abdomen pelvis CT 12/30/2018 Findings: Gallbladder demonstrates gallstones. No wall thickening nor pericholecystic fluid. Arterial artifact noted in the gallbladder fundus, may reflect some adenomyosis. Sonographic Ortega's sign is negative. Common bile duct measures 6 mm in diameter. No intrahepatic biliary ductal dilatation. Liver demonstrates diffusely increased echogenicity, consistent with fatty change demonstrated on recent CT scan. Portal vein and hepatic veins are patent. Pancreas is unremarkable. Left kidney measures 10.8 cm in length. Right kidney measures 10.9 cm length. Both kidneys demonstrate normal echogenicity. There is no hydronephrosis. No focal abnormality . Abdominal aorta is partially obscured by bowel gas, visualized portions are non-aneurysmal . The spleen demonstrates a cluster of prominent vessels, with some slight adjacent increased echogenicity.. The vessels appear to be predominantly venous, but there is also some low resistance arterial flow demonstrated on Doppler interrogation. An accessory splenule is seen inferior to the lower pole of the spleen. This also demonstrated on recent CT scan Impression: Cholelithiasis. Negative for dilated bile ducts Possible gallbladder wall adenomyosis Splenic vascular lesion, with dilated veins and possibly some arterial flow. 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 Given the presence of enlarged vessels, the possibility of an arterial venous malformation should be considered, although lack of enhancement on CT does not support this. Alternatively, this could represent and unusual cavernous malformation with enlarged vascular channels. Consider hemangioma protocol MRI for better characterization Fatty liver, also described on recent CT scan Note nonvisualization of portions of the abdominal aorta
--- NOTE | 2019-01-01 15:35 | NUR ---
NURSE NOTES: Dr. Petit notified of patient with nausea after regular lunch and that she only ate 25% of her food, and that she is experiencing diarrheal BMs x5 at this time. No changes in orders for discharge.
--- NOTE | 2019-01-01 19:00 | NUR ---
NURSE NOTES: Spoke with Dr. Lua regarding elevated blood pressure 171/122 mmHg, orders received.
--- NOTE | 2019-01-01 19:45 | NUR ---
NURSE NOTES: Clonidine administered by Raquel rahman RN, patient refused to wait for 45 minutes to have blood pressure rechecked.
--- NOTE | 2019-01-01 19:45 | NUR ---
NURSE NOTES: Blood pressure checked prior to Clonidine administration, 175/121 mmHg, patient refused to wait for recheck, RN explained potential risks.
[2019-01-01] MEDS ORDERED: 1/2 NS 1000ml IV ONE (20:17)
--- NOTE | 2019-01-01 20:20 | NUR ---
NURSE NOTES: Discharge instructions reviewed with patient, verbalized understanding. IV heplock discontinued. All belongings and discharge instructions given to patient. Patient ambulated down to lobby with RN, stable/asymptomatic. Denies chest pain, SOB. Patient discharged home at 2018.
--- NOTE | 2019-01-03 11:42 | NUR ---
CASE MANAGEMENT: CM review and clinical information (face sheet/ ER MD notes/ H&P/ operative and procedure notes) faxed to [facility] @ [phone]. Ref# [id number]
--- NOTE | 2019-01-04 09:53 | NUR ---
*-* INSURANCE *-* CLINICALS, REVIEW AND INTERQUAL HAVE BEEN FAXED TO: [facility] F:[phone] REF# [id number]
== END 2019-01-01 20:18 | disposition home or self-care (01) | DRG 392 ==
LOC: EMR 15:53 → 3E 17:37 → EDBEDREQ 18:40
PROC: 0DB78ZX Excision of Stomach, Pylorus, Via Natural or Artificial Opening Endoscopic, Diagnostic (ICD-10-PCS; principal; 2018-12-31 12:30)
DX: A08.4 Viral intestinal infection, unspecified (principal); Z68.41 Body mass index [BMI] 40.0-44.9, adult; R13.10 Dysphagia, unspecified; R11.2 Nausea with vomiting, unspecified; K29.70 Gastritis, unspecified, without bleeding; I16.0 Hypertensive urgency; E66.01 Morbid (severe) obesity due to excess calories
CPT/HCPCS: 36415; 70490; 74177; 76700; 80048; 80053; 81003; 81025; 83690; 85007; 85025; 87324; 96365; 96375; 99285; J2250; J2405; J2765; J8499